=== PATIENT | female | born 1960 | race Caucasian/White ===

== ENCOUNTER 2022-07-18 07:49 | Outpatient (RCR) | payer OTHER, SELFPAY ==
--- NOTE | ~2022-07-18 | XR_ITS ---
EXAMINATION: XR FOOT, LEFT CLINICAL INFORMATION: Evaluate for osteomyelitis. COMPARISON: None TECHNIQUE: AP, lateral, and oblique views of the left foot. FINDINGS: There is an orthopedic dressing overlying the plantar and medial aspect of the foot. Suspect superficial defect/ulceration overlying the plantar aspect of the foot on the lateral projection at the level of the 1st metatarsophalangeal joint. This defect measures 1 cm craniocaudal and approximately 0.3 cm in depth. No definite bone erosion or periostitis. There is some deformity of the proximal phalanx of the 4th toe perhaps related to old trauma. No bone erosion. There are small calcaneal spurs. XR/XR foot LT min 3V IMPRESSION: 1. No radiographic evidence for osteomyelitis. 2. Orthopedic dressing overlying the plantar and medial aspect of the foot. 3. Deformity of the proximal phalanx of the 4th toe likely related to old trauma. 4. Probable soft tissue ulceration along the plantar aspect of the foot.
[2022-08-08 09:36] LABS: MANUAL DIFF FLAG NO
[2022-08-08 09:42] LABS: Basophils Absolute Auto 0.1 X10*3/uL (0.0-0.2); Basophils Percent Auto 0.9 % (0-2); Eosinophils Absolute Auto 0.2 X10*3/uL (0.0-0.4); Eosinophils Percent Auto 1.9 % (0-4); Hematocrit 36.2 % (37.0-47.0); Hemoglobin 12.1 g/dl (12.0-16.0); Imm Gran Abs Auto 0.03 X10*3/uL (0.00-0.03); Imm Gran Pct Auto 0.4 % (0.0-0.4); Lymphocytes Absolute Auto 2.2 X10*3/uL (1.2-4.9); Lymphocytes Percent Auto 25.6 % (20-40); Mean Corpuscular HGB Conc 33.4 g/dl (31.0-35.0); Mean Corpuscular Hemoglobin 30.6 pg (27.0-33.0); Mean Corpuscular Volume 91.6 fL (80.0-98.0); Mean Platelet Volume 10.3 fL (9.4-12.3); Monocytes Absolute Auto 0.9 X10*3/uL (0.1-1.2); Neutrophils Absolute Auto 5.2 x10*3/uL (2.0-8.3); Neutrophils Percent Auto 61.2 % (45-73); Platelet Count 281 X10*3/uL (160-400); Red Blood Count 3.95 X10*6/uL (4.20-5.50); Red Cell Distribution Width 12.9 % (11.0-16.0); White Blood Count 8.5 X10*3/uL (4.8-10.8)
[2022-08-08 10:09] LABS: Anion Gap 10 (12-20); Blood Urea Nitrogen 16 mg/dL (9-16); Calcium 9.2 mg/dL (8.4-10.2); Carbon Dioxide 29 mmol/L (22-29); Chloride 99 mmol/L (96-108); Estimated Glomerular Filt Rate > 60; Glucose Random 93 mg/dL (60-115); Potassium 4.4 mmol/L (3.3-5.1); Sodium 134 mmol/L (135-145)
[2022-08-08 10:21] LABS: Erythrocyte Sedimentation Rate 39 MM/HR (0-20)
[2022-08-08 10:38] LABS: Estimated Average Glucose 105 mg/dL; Hemoglobin A1c % 5.3 %
== END 2022-09-22 14:31 | disposition home or self-care (01) ==
LOC: HO.WCC 07:49
PROVIDERS: Visit Provider Physician Assistant
DX: I70.245 Atherosclerosis of native arteries of left leg with ulceration of other part of foot (principal); L97.522 Non-pressure chronic ulcer of other part of left foot with fat layer exposed; L97.512 Non-pressure chronic ulcer of other part of right foot with fat layer exposed; I70.235 Atherosclerosis of native arteries of right leg with ulceration of other part of foot; G90.09 Other idiopathic peripheral autonomic neuropathy; I10 Essential (primary) hypertension; L84 Corns and callosities; Z87.891 Personal history of nicotine dependence; Z86.73 Personal history of transient ischemic attack (TIA), and cerebral infarction without residual deficits
CPT/HCPCS: 11042; 11044; 36415; 73630; 80048; 83036; 84134; 85025; 85652; 86140; 87070; 87073; 87076; 87185; 87205; 88305; 88307; 88311; 99213

== ENCOUNTER 2022-08-22 12:21 | Outpatient (REF) | payer OTHER, SELFPAY ==
[2022-08-22 13:20] LABS: Blood Urea Nitrogen 26 mg/dL (9-16); Estimated Glomerular Filt Rate > 60
== END 2022-08-22 12:22 | disposition home or self-care (01) ==
LOC: HO.LAB 12:21
PROVIDERS: PCP Internal Medicine; Visit Provider Radiology Vascular & Interventional Radiology
DX: R79.89 Other specified abnormal findings of blood chemistry (principal); R94.4 Abnormal results of kidney function studies
CPT/HCPCS: 36415; 82565; 84520

== ENCOUNTER 2022-09-22 08:54 | Outpatient (REF) | payer OTHER, SELFPAY ==
--- NOTE | ~2022-09-22 | MR_ITS ---
EXAMINATION: MRI FOOT WITHOUT AND WITH CONTRAST, LEFT CLINICAL INFORMATION: Plantar diabetic foot ulcer. Ankle and calf swelling. Pain in between toes. COMPARISON: Left foot radiographs dated 08/08/2022. TECHNIQUE: Multisequence MR imaging of the left foot was obtained before and after the IV administration of 10 mL Gadavist contrast on a high-field strength scanner. FINDINGS: Soft tissue ulceration along the plantar aspect of the 1st metatarsal head with adjacent skin thickening and mild edema. No significant enhancement. Findings likely represent chronic cellulitis. No adjacent marrow edema or enhancement to suggest acute osteomyelitis. Skin thickening along the dorsal/lateral aspect of the 4th toe as well as the adjacent medial aspect of the 5th toe with soft tissue edema and enhancement, consistent with cellulitis. No organized fluid collection/abscess formation. Increased T2 and decreased T1 signal within the 4th proximal phalanx as well as to a lesser degree within the 4th middle phalanx with postcontrast enhancement, consistent with acute osteomyelitis. No proximal interphalangeal joint effusion, however, early septic arthritis is likely. No stress reaction or fracture. Articular cartilage loss with marginal osteophytes at the 1st metatarsophalangeal joint and hallux sesamoids. No concerning lytic or blastic osseous lesion. Edema and atrophy of the intrinsic musculature which can be seen in diabetic patients. No measurable tendon tear. Intact Lisfranc ligament. MR/MR foot LT wo/w con IMPRESSION: 1. Soft tissue ulceration and cellulitis along the dorsal/lateral aspect of the 4th toe as well as the medial aspect of the 5th toe. No abscess formation. Findings consistent with acute osteomyelitis within the 4th proximal phalanx as well as to a lesser degree within the 4th middle phalanx. No proximal interphalangeal joint effusion, however, early septic arthritis is likely. 2. Soft tissue ulceration along the plantar aspect of the 1st metatarsal head without evidence of adjacent osteomyelitis. 3. 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 4. Edema and atrophy of the intrinsic musculature which can be seen in diabetic patients.
== END 2022-09-22 08:55 | disposition home or self-care (01) ==
LOC: HO.MRI 08:54
PROVIDERS: PCP Internal Medicine; Visit Provider Internal Medicine
DX: E11.621 Type 2 diabetes mellitus with foot ulcer (principal)
CPT/HCPCS: 73720; A9585

== ENCOUNTER 2023-08-06 08:56 | Outpatient (RCR) | payer OTHER, SELFPAY | END 2023-08-20 17:00 | disposition home or self-care (01) | LOC: HO.WCC 08:56 | PROVIDERS: PCP Internal Medicine; Visit Provider Surgery | DX: L97.512 Non-pressure chronic ulcer of other part of right foot with fat layer exposed (principal); G90.09 Other idiopathic peripheral autonomic neuropathy; L60.0 Ingrowing nail; Z87.891 Personal history of nicotine dependence; Z79.01 Long term (current) use of anticoagulants | CPT/HCPCS: 11730; 17250; 99213 ==

== ENCOUNTER 2023-12-30 08:03 | Outpatient (RCR) | payer OTHER, SELFPAY ==
--- NOTE | ~2023-12-30 | XR_ITS ---
EXAMINATION: XR FOOT, RIGHT XR FOOT, LEFT CLINICAL INFORMATION: Bilateral foot wound. COMPARISON: Left foot MRI dated 09/22/2022. TECHNIQUE: AP and lateral views of the right and left foot. FINDINGS: RIGHT FOOT: Partially visualized ORIF within the distal fibula. Orthopedic screws. There is a fracture, retained screw within the distal tibia. No perihardware lucency to suggest loosening or infection. Soft tissue ulceration dorsal to the calcaneus measuring up to 4.3 cm in craniocaudal dimension with an overlying bandage. This extends to the cortex where there is focal cortical lucency measuring up to 1.3 cm in craniocaudal dimension. Findings could represent osteomyelitis. No acute fracture or dislocation. Small plantar calcaneal spur. Circumferential subcutaneous edema. LEFT FOOT: No acute fracture or dislocation. Attenuation and irregularity of the fourth proximal phalanx which appears corticated and could represent sequela of previously seen osteomyelitis. No new cortical erosion or periosteal reaction. Early osteomyelitis may be occult on plain radiographs. Plantar and dorsal calcaneal spurs. Circumferential soft tissue swelling. XR/XR foot LT 2V IMPRESSION: RIGHT FOOT: Soft tissue ulceration dorsal to the calcaneus with adjacent cortical lucency which could represent osteomyelitis. Circumferential soft tissue swelling. LEFT FOOT: Circumferential soft tissue swelling. No acute osseous abnormality. Possible sequela of previously seen osteomyelitis within the fourth proximal phalanx. Early osteomyelitis may be occult on plain radiographs.
--- NOTE | ~2023-12-30 | XR_ITS ---
EXAMINATION: XR FOOT, RIGHT XR FOOT, LEFT CLINICAL INFORMATION: Bilateral foot wound. COMPARISON: Left foot MRI dated 09/22/2022. TECHNIQUE: AP and lateral views of the right and left foot. FINDINGS: RIGHT FOOT: Partially visualized ORIF within the distal fibula. Orthopedic screws. There is a fracture, retained screw within the distal tibia. No perihardware lucency to suggest loosening or infection. Soft tissue ulceration dorsal to the calcaneus measuring up to 4.3 cm in craniocaudal dimension with an overlying bandage. This extends to the cortex where there is focal cortical lucency measuring up to 1.3 cm in craniocaudal dimension. Findings could represent osteomyelitis. No acute fracture or dislocation. Small plantar calcaneal spur. Circumferential subcutaneous edema. LEFT FOOT: No acute fracture or dislocation. Attenuation and irregularity of the fourth proximal phalanx which appears corticated and could represent sequela of previously seen osteomyelitis. No new cortical erosion or periosteal reaction. Early osteomyelitis may be occult on plain radiographs. Plantar and dorsal calcaneal spurs. Circumferential soft tissue swelling. XR/XR foot RT 2V IMPRESSION: RIGHT FOOT: Soft tissue ulceration dorsal to the calcaneus with adjacent cortical lucency which could represent osteomyelitis. Circumferential soft tissue swelling. LEFT FOOT: Circumferential soft tissue swelling. No acute osseous abnormality. Possible sequela of previously seen osteomyelitis within the fourth proximal phalanx. Early osteomyelitis may be occult on plain radiographs.
== END 2024-04-01 12:13 | disposition other institution (70) ==
LOC: HO.WCC 08:03
PROVIDERS: PCP Internal Medicine; Visit Provider Surgery
DX: L89.610 Pressure ulcer of right heel, unstageable (principal); L89.626 Pressure-induced deep tissue damage of left heel; Z79.891 Long term (current) use of opiate analgesic; Z79.2 Long term (current) use of antibiotics; Z79.01 Long term (current) use of anticoagulants; Z79.899 Other long term (current) drug therapy
CPT/HCPCS: 11042; 11043; 11044; 73620; 87070; 87073; 87076; 87077; 87147; 87185; 87186; 87205; 88304; 88305; 88311; 99214